=== PATIENT | female | born 1970 | race Caucasian/White ===

== ENCOUNTER 2017-02-19 06:31 | Day surgery (SDC) | payer OTHER ==
[~2017-02-19] VITALS: Ht 172.7 cm; Wt 164.7 kg
--- NOTE | 2017-02-19 08:16 | Operative Note ---
Upper GI Endoscopy Procedure date: 02/19/17 Date of : 70 Procedure:Upper GI Endoscopy Esophagogastrojejunoscopy with cold biopsies Indications: Mrs. Kim is a 46-year-old female who has dyspepsia with epigastric and RIGHT upper quadrant abdominal pain. She underwent Rosalind-en-Y gastric bypass in 1999 and had laparoscopic cholecystectomy 3 months later. The patient does report bloating, gassiness, belching, nausea and early satiety. She does have a history of H. pylori. Her recent lab work was normal. She also has a history of irritable bowel syndrome with alternating constipation and diarrhea. Her last EGD was nondistended 10 years ago. She is not established with a bariatric surgeon. Performing Provider: Rah Baez MD Referring Provider: Aaron Henderson M.D. Sedation: MAC sedation Procedure: Prior to the procedure, a history and physical exam was performed, and patients medications and allergies were reviewed. The risks and benefits of the procedure and the sedation options and risks were discussed with the patient. All questions were answered and informed consent was obtained. The patient was brought to the procedure room. Patient identification and proposed procedure were verified by the physician and the nurse. The patient was placed in a left lateral decubitus position and the scope was passed under direct vision. Throughout the procedure, the patient's blood pressure, pulse, and oxygen saturations were monitored continuously. The endoscope was introduced through the mouth, and advanced to the second part of duodenum. The upper GI endoscopy was accomplished without difficulty. The patient tolerated the procedure well. Findings: The endoscope was passed directly into the upper esophagus and advanced to the efferent limb of the jejunum Rosalind-en-Y bypass. Upon withdrawal there was a widely patent stomal anastomosis. There was a generous gastric pouch. There was mild gastritis of the remaining gastric pouch and cold biopsies were obtained. There was a small 1-2 cm hiatal hernia. Cold biopsies were taken at the Z line that was serrated. There was a proximal esophageal inlet patch that was small. There was some surrounding squamous polyp adjacent to the inlet patch that was biopsied. There was mild esophageal dysmotility. Immediate complications: None EBL (ml): 0 Impression: 1. Proximal esophageal inlet patch with diminutive squamous polyp adjacent 2. Nonerosive gastroesophageal reflux disease with small 1-2 cm hiatal hernia and mild esophageal dysmotility 3. Normal Rosalind-en-Y gastric bypass anatomy Recommendations: I am not convinced that the endoscopic findings explain her dyspepsia. I am going to place her on pro motility therapy and treatment for visceral sensitivity (BuSpar). I will have the patient follow-up in 12 weeks. I may also consider doing MRCP or imaging study of the abdomen to exclude biliary tract disease. at [id number]
[2017-02-19 09:18] VITALS: BP 135/80
== END 2017-02-19 09:10 | disposition home or self-care (01) ==
LOC: SDC 06:31
PROVIDERS: Internal Medicine Gastroenterology
PROC: 0DB68ZX Excision of Stomach, Via Natural or Artificial Opening Endoscopic, Diagnostic (ICD-10-PCS; 2017-02-19)
PROC: 0DB58ZX Excision of Esophagus, Via Natural or Artificial Opening Endoscopic, Diagnostic (ICD-10-PCS; principal; 2017-02-19 08:00)
DX: K29.50 Unspecified chronic gastritis without bleeding (principal); K21.9 Gastro-esophageal reflux disease without esophagitis; K44.9 Diaphragmatic hernia without obstruction or gangrene; K22.4 Dyskinesia of esophagus; Z98.84 Bariatric surgery status